=== PATIENT | female | born 1995 | race Caucasian/White ===

== ENCOUNTER 2018-01-20 16:03 | Emergency (ER) | payer BC ==
[~2018-01-20] VITALS: Ht 165.1 cm; Wt 86.4 kg
[2018-01-20 16:05] VITALS: TEMP 36.8; Ht 165.1 cm; Wt 86.4 kg
[2018-01-20] MEDS ORDERED: IBUPROFEN 800 MG TAB PO STA (16:20)
[2018-01-20] MEDS ORDERED: CLR10 PO (16:25)
--- NOTE | 2018-01-20 16:45 | DIAGNOSTIC IMAGING REPORT ---
L SHOULDER MIN 2 VIEWS ROUTINE HISTORY: 22 years-old Female left shoulder pain acute left shoulder pain without trauma COMPARISON: None available TECHNIQUE: 3 views of the left shoulder FINDINGS: No acute fracture, dislocation or significant degenerative changes. No opaque foreign body. Imaged lung ramsey appear clear. IMPRESSION: No acute fracture or dislocation. The above report was generated using voice recognition software. It may contain grammatical, syntax or spelling errors. Electronically signed by: Abraham Soriano M.D. 01/20/2018 4:43 PM Dictated Date/Time: 01/20/2018 4:43 PM
[2018-01-20] MEDS ORDERED: LIDODERM (LIDOCAINE) PATCH 5% TD STA (17:18)
--- NOTE | 2018-01-20 17:44 | EMERGENCY ROOM VISIT NOTE ---
ED Visit Note First contact with patient: 16:09 CHIEF COMPLAINT: Left shoulder pain HISTORY OF PRESENT ILLNESS: This 22-year-old female patient presents to the emergency department, ambulatory, complaining of pain in the left shoulder which began spontaneously approximately 2 hours ago. The patient states the pain began after driving 2 hours to [place]. She states it is very severe , which concerned her and prompted her to come to the emergency department for evaluation. She has taken no medications for her pain. There is no limitation of motion of the arm because of the pain. The pain is moderate, constant and increases with motion of the hand and arm. The patient states the pain is sharp and 7/10. No previous significant previous shoulder disease or injury. No numbness or tingling. No neck or back pain. No chest pain or shortness of breath. No abdominal pain or nausea/vomiting. No cough. 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 She also recently got a tetanus vaccination in the left deltoid. She denies any complications with the vaccination, however is concerned that the vaccination could have prompted her injury. REVIEW OF SYSTEMS: A 6 system review of systems was performed with positives and pertinent negatives in the HPI. ALLERGIES: Azithromycin MEDICATIONS: Claritin PMH: Seasonal allergies SOCIAL HISTORY: The patient lives approximately 2 hours away with family. She denies drug, tobacco use. She does admit to occasional alcohol use. PHYSICAL EXAM: Vital Signs: Reviewed nurse's notes, vital signs stable. GENERAL : This is a 22-year-old white female, in no acute distress, but appears to be in pain, well-developed, well-nourished. SKIN: No erythema, palpable mass, rash , or discoloration noted of the left upper extremity. There is a small puncture wound in the left deltoid in the area of the patient's injection. There are no signs of infection or warmth. MUSCULOSKELETAL: There is no deformity in the contour of the left shoulder and there are no rj deformities noted. There is no sulcus sign. There is tenderness over the acromioclavicular joint. The patient's range of motion is full. Supraspinatus strength 5/5. There is no clavicle tenderness. No tenderness of the humerus, elbow, wrist, or hand. [employer] strength 5/5. Radial pulse 2+. NECK: No tenderness to palpation over the cervical spine. Full range of motion of the no lymphadenopathy. HEART: Regular rate and rhythm without murmurs gallops or rubs. LUNGS: Clear to auscultation bilaterally without wheezes, rales or rhonchi. No accessory muscle use. No retractions. NEURO: The patient is alert and oriented to person, place, and time. Normal sensation to light and sharp touch. Capillary refill less than 2 seconds. RADIOLOGY: L SHOULDER MIN 2 VIEWS ROUTINE HISTORY: 22 years-old Female left shoulder pain acute left shoulder pain without trauma COMPARISON: None available TECHNIQUE: 3 views of the left shoulder FINDINGS: No acute fracture, dislocation or significant degenerative changes. No opaque foreign body. Imaged lung ramsey appear clear. IMPRESSION: No acute fracture or dislocation. The above report was generated using voice recognition software. It may contain grammatical, syntax or spelling errors. Electronically signed by: Abraham Soriano M.D. 01/20/2018 4:43 PM Dictated Date/Time: 01/20/2018 4:43 PM EMERGENCY DEPARTMENT COURSE: I examined the patient. She is given 800 mg ibuprofen. An X-ray of the left shoulder was reviewed by myself and radiologist and shows no acute fracture or bony abnormalities. I discussed the findings with the patient at bedside. She continues to feel uneasy. A Lidoderm patch was applied as well as an ice pack. The patient was reassessed after approximately 1 hour. She does note improvement in her symptoms at this time. I provided patient with reassurance that I suspect a musculoskeletal injury/etiology. The patient verbalized understanding. She was certainly encouraged to return immediately to the emergency department for worsening symptoms. She was provided with a prescription for muscle relaxers, and I discussed with her the importance of anti-inflammatory medications. The patient was encouraged to follow-up with her primary care provider on Tuesday for further evaluation and reassessment. She was in agreement with the assessment and plan. Discharge instructions reviewed, the patient was discharged home in good condition. I attest that I have personally reviewed the patient's current medication list. Patient was found to have normal blood pressure on screening and does not require follow-up. Etiologies such as infection, abscess, adverse reaction to vaccination, soft tissue injury, fracture, dislocation, neurovascular compromise, compartment syndrome, as well as others were entertained. DIAGNOSIS: Left shoulder pain The chart was completed utilizing Dragon Speech voice recognition software. Grammatical errors, random word insertions, pronoun errors, and incomplete sentences are an occasional consequence of this system due to software limitations, ambient noise, and hardware issues. Any formal questions or concerns about the content, text, or information contained within the body of this dictation should be directly addressed to the provider for clarification. Current/Historical Medications Scheduled Cyclobenzaprine Hcl (Flexeril), 5-10 MG PO TID Loratadine (Claritin), 10 MG PO DAILY Allergies Coded Allergies: Azithromycin (Verified Allergy, Intermediate, Hives, 01/20/18) NUTS (Verified Allergy, Intermediate, Tongue itchiness, 01/20/18) Uncoded Allergies: FRESH FRUIT (Allergy, Intermediate, Tongue itchiness, 01/20/18) Vital Signs Date Time Temp Pulse Resp B/P (MAP) Pulse Ox O2 Delivery O2 Flow Rate FiO2 01/20/18 18:30 97 18 124/85 98 Room Air 01/20/18 17:26 76 16 128/85 98 Room Air 01/20/18 16:05 36.8 116 20 158/94 98 Room Air Medications Administered Medications (Trade) Dose Ordered Sig/Haseeb Route Start Time Stop Time Status Last Admin Dose Admin Ibuprofen (Motrin Tab) 800 mg NOW STAT PO 01/20/18 16:20 01/20/18 16:22 DC 01/20/18 16:35 800 MG Lidocaine (Lidoderm Patch 5%) 1 patch NOW STAT TD 01/20/18 17:18 01/20/18 17:19 DC 01/20/18 17:31 1 PATCH Departure Information Impression Primary Impression: Left shoulder strain Dispostion Home / Self-Care Condition GOOD Prescriptions Cyclobenzaprine Hcl (FLEXERIL) 5 Mg Tab 5-10 MG PO TID, #15 TAB PRN Prov: Rocio Harris, VIKY 01/20/18 Referrals No Doctor, Assigned (PCP) Patient Instructions ED Shoulder Pain O, [facility] Additional Instructions You were seen in the ED today for left shoulder pain. X-ray was negative for acute fracture. I do not suspect adverse reaction to vaccination. I do suspect a muscle strain as the cause of your symptoms. Ibuprofen(Motrin, Advil) may be used for fever or pain. Use 600mg every six hours as needed. Take with food. Avoid using more than 2400mg in a 24 hour period. Do not use 2400mg per day for more than three consecutive days without physician direction. Prolonged inappropriate use can lead to stomach upset or ulcers. (AND/OR) Acetaminophen(Tylenol) may be used for fever or pain. Use 1000mg every six hours as needed. Avoid using more than 3000mg in a 24 hour period. You have been prescribed Flexeril (cyclobenzaprine) 1-2 tabs orally, three times per day. Do NOT exceed 30 mg (6 tabs) per day. Take your first dose at bedtime as it can make you drowsy. Always take all medications as prescribed. Ice compresses for 20 minutes at a time four times daily for 2-3 days. Rest and elevate your injury. Do not get the splint wet. If your splint feels excessively tight, you have worsening pain, develop numbness or tingling, or your digits appear blue, loosen the lenin wrap. Then reapply the lenin wrap gently without removing the splint. If your symptoms are not quickly relieved return to the ER for re- evaluation. Return to the ER immediately for any numbness, tingling, severe pain, extreme swelling in the extremity or as needed. Follow-up with your primary care physician in 2 to 3 days for a recheck of your current condition. Problem Qualifiers Primary Impression: Left shoulder strain Encounter type: initial encounter Qualified Codes: S46.912A - Strain of unspecified muscle, fascia and tendon at shoulder and upper arm level, left arm , initial encounter
[2018-01-20] MEDS ORDERED: CYCL5TAB PO (18:15)
[2018-01-20 18:30] VITALS: BP 124/85; PULSE 97; O2SAT 98
== END 2018-01-20 18:30 | disposition home or self-care (01) ==
LOC: C.EDB 16:04 → C.EDD 18:30
DX: S46.912A Strain of unspecified muscle, fascia and tendon at shoulder and upper arm level, left arm, initial encounter (principal); X58.XXXA Exposure to other specified factors, initial encounter; J30.2 Other seasonal allergic rhinitis; Z88.1 Allergy status to other antibiotic agents; Z91.018 Allergy to other foods